=== PATIENT | male | born 1990 | race American Indian/Alaskan Native ===

== ENCOUNTER 2018-09-05 09:06 | Emergency (ER) | payer SELFPAY ==
[2018-09-05 09:11] VITALS: BP 139/75
--- NOTE | 2018-09-05 09:48 | Emergency Department Report ---
[facility] Chief Complaint: Eye Problems Stated Complaint: POSS PINK EYE Time Seen by Provider: 09/05/18 09:44 Duration: 1 Day Side: Left Severity: moderate Symptoms: Yes Eye Itching, Yes Eye Redness, No Eye Pain, No Mucous Drainage, No Purulent Drainage, No Blurred Vision, No Preceding URI, No H/O Allergic Rhinitis, No Contact Lens Use, No Trauma, No Fever, No Headache ED Review of Systems ROS: Stated complaint: POSS PINK EYE Other details as noted in HPI Comment: All other systems reviewed and negative ED Past Medical Hx - Past Medical History Previous Medical History?: No - Surgical History Past Surgical History?: No - Social History Smoking Status: Never Smoker Substance Use Type: Marijuana - Medications Home Medications: Home Medications Medication Instructions Recorded Confirmed Last Taken Type Ofloxacin [Ocuflox 0.3%] 1 - 2 drop OP Q6HR #5 ml 09/05/18 Unknown Rx [facility] Exam - Exam General: Vital signs noted. No distress. Alert and acting appropriately. Eye Exam: Neither Injection, Neither Chemosis, Neither Abnormal Pupil, Neither EOMI, Neither Eye Foreign Body, Neither Lid Foreign Body, Neither Mucous Discharge, Neither Purulent Discharge HEENT: No Nasal Congestion, No Pharyngeal Erythema Remainder of HEENT: Normal Lungs: Yes Clear Lung Sounds, Yes Good Air Exchange, No Wheezes, No Stridor, No Cough, No Nasal Flaring, No Retractions, No Use of Accessory Muscles Exam: Vision is intact bilaterally. Pupils size to 3 mm, PERRLA ED Course Vital Signs 09/05/18 09:10 Temperature 98 F Pulse Rate 83 Respiratory 15 Rate Blood Pressure 139/75 [Left] O2 Sat by Pulse 98 Oximetry ED Medical Decision Making - Medical Decision Making 28-year-old male presents with left eye conjunctivitis ED course: zepeda lamp test shows no corneal abrasion. discussed this with the patient. 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 I discussed the patient is new or worsening symptoms to return to ED immediately Patient's vital signs are stable he's in no distress. Patient is vision is intact, visual acuity test performed, within normal limits. Discussed the patient to follow up with her primary care physician in 3-5 days. Critical care attestation.: If time is entered above; I have spent that time in minutes in the direct care of this critically ill patient, excluding procedure time. ED Disposition Clinical Impression: Conjunctivitis Disposition: - TO HOME OR SELFCARE Is pt being admited?: No Does the pt Need Aspirin: No Condition: Stable Instructions: Conjunctivitis (ED) Additional Instructions: Make sure to follow up with the primary care physician as discussed. Take all your medications as you've been prescribed. If you have any worsening symptoms or develop new symptoms please return to ED immediately. Prescriptions: Ofloxacin [Ocuflox 0.3%] 1 - 2 drop OP Q6HR #5 ml Referrals: ROSEY CANCHOLA MD [Primary Care Provider] - 3-5 Days Forms: Accompanied Note, Work/School Release Form(ED) Time of Disposition: 09:48
== END 2018-09-05 10:08 | disposition home or self-care (01) ==
LOC: ED 09:06
DX: H10.32 Unspecified acute conjunctivitis, left eye (principal)
CPT/HCPCS: 99282